=== PATIENT | female | born 1960 | race Caucasian/White ===

== ENCOUNTER → 2017-03-10 | Outpatient (CLI) | payer OTHER ==
[2017-03-10 11:03] LABS: BASO # 0.1 K/mm3 (0.0-0.2); EOS # 0.2 K/mm3 (0.0-0.50); EOS % 2.4 % (0.0-3.0); LARGE UNSTAINED CELL # 0.1 K/mm3 (0.0-0.4); LARGE UNSTAINED CELL % 1.4 % (0.0-4.0); LYMPH # 2.9 K/mm3 (1.5-4.5); LYMPH % 30.9 % (24.0-44.0); MEAN CORPUSCULAR HEMOGLOBIN 30.9 pg (27.0-33.0); MEAN CORPUSCULAR HGB CONC 33.7 g/dl (32.0-36.5); MEAN CORPUSCULAR VOLUME 91.5 fl (80.0-96.0); MONO # 0.4 K/mm3 (0.0-0.8); MONO % 4.7 % (0.0-5.0); NEUTROPHILS # 5.3 K/mm3 (1.8-7.7); NEUTROPHILS % 59.7 % (36.0-66.0); PLATELET COUNT, AUTOMATED 237 k/mm3 (150-450); RED CELL DISTRIBUTION WIDTH 13.7 % (11.5-14.5)
[2017-03-10 11:19] LABS: ALBUMIN 3.5 GM/DL (3.2-5.2); ALBUMIN/GLOBULIN RATIO 1.06 (1.00-1.93); ALKALINE PHOSPHATASE 192 U/L (45-117); ALT/SGPT 47 U/L (12-78); ANION GAP 6 MEQ/L (8-16); AST/SGOT 28 U/L (15-37); BILIRUBIN,TOTAL 0.2 MG/DL (0.2-1.0); BLOOD UREA NITROGEN 14 MG/DL (7-18); CALCIUM LEVEL 9.1 MG/DL (8.5-10.1); CARBON DIOXIDE LEVEL 32 MEQ/L (21-32); CHLORIDE LEVEL 106 MEQ/L (98-107); CHOLESTEROL LEVEL 221 MG/DL (<200); CREATININE FOR GFR 0.99 MG/DL (0.55-1.02); GLOMERULAR FILTRATION RATE > 60.0 (>51); GLUCOSE, FASTING 100 MG/DL (70-105); POTASSIUM SERUM 4.1 MEQ/L (3.5-5.1); SODIUM LEVEL 144 MEQ/L (136-145); TOTAL PROTEIN 6.8 GM/DL (6.4-8.2); TRIGLYCERIDES LEVEL 421 MG/DL (<150)
== END ==
LOC: M LAB 09:45
PROVIDERS: ATTEND Family Medicine Addiction Medicine
DX: E03.9 Hypothyroidism, unspecified (principal)

== ENCOUNTER → 2017-05-27 | Outpatient (REF) | payer OTHER, MEDICAID ==
[2017-05-27 19:48] LABS: ALBUMIN 3.5 GM/DL (3.2-5.2); ALBUMIN/GLOBULIN RATIO 1.09 (1.00-1.93); ALKALINE PHOSPHATASE 137 U/L (45-117); ALT/SGPT 47 U/L (12-78); ANION GAP 10 MEQ/L (8-16); AST/SGOT 29 U/L (15-37); BILIRUBIN,TOTAL 0.3 MG/DL (0.2-1.0); BLOOD UREA NITROGEN 12 MG/DL (7-18); CALCIUM LEVEL 9.2 MG/DL (8.5-10.1); CARBON DIOXIDE LEVEL 23 MEQ/L (21-32); CHLORIDE LEVEL 113 MEQ/L (98-107); CHOLESTEROL LEVEL 196 MG/DL (<200); CREATININE FOR GFR 0.71 MG/DL (0.55-1.02); GLOMERULAR FILTRATION RATE > 60.0 (>51); GLUCOSE, FASTING 114 MG/DL (70-105); POTASSIUM SERUM 4.2 MEQ/L (3.5-5.1); SODIUM LEVEL 146 MEQ/L (136-145); TOTAL PROTEIN 6.7 GM/DL (6.4-8.2); TRIGLYCERIDES LEVEL 224 MG/DL (<150)
== END ==
LOC: M LAB REF 13:35
PROVIDERS: ATTEND Family Medicine Addiction Medicine
DX: E78.5 Hyperlipidemia, unspecified (principal); E03.9 Hypothyroidism, unspecified

== ENCOUNTER 2018-07-04 17:44 | Emergency (ER) | payer OTHER, MEDICAID ==
[2018-07-04] MEDS: dexameTHASONE 20 MG/5 ML VIAL (J1100) IV (20:02)
[2018-07-04] MEDS: IPRATROPIUM 0.5MG/ALBUTEROL 2.5MG INH SOL UD 3ML (DUONEB)(J7620) NEB (20:02)
[2018-07-04 20:24] LABS: BASO # 0.1 10^3/uL (0.0-0.2); BASO % 0.5 % (0.0-1.0); EOS # 0.2 10^3/uL (0.0-0.50); EOS % 1.6 % (0.0-3.0); HEMATOCRIT 42.7 % (36.0-47.0); HEMOGLOBIN 14.5 g/dl (12.0-15.5); IMMATURE GRANULOCYTE % 0.4 % (0-3.0); LYMPH # 1.4 10^3/uL (1.5-4.5); LYMPH % 13.7 % (24.0-44.0); MEAN CORPUSCULAR HEMOGLOBIN 30.7 pg (27.0-33.0); MEAN CORPUSCULAR VOLUME 90.5 fl (80.0-96.0); MONO % 9.5 % (0.0-5.0); NEUTROPHILS # 7.4 10^3/uL (1.8-7.7); NEUTROPHILS % 74.3 % (36.0-66.0); PLATELET COUNT, AUTOMATED 216 10^3/uL (150-450); RED BLOOD COUNT 4.72 10^6/uL (4.00-5.40); RED CELL DISTRIBUTION WIDTH 14.2 % (11.5-14.5)
[2018-07-04 20:40] LABS: INR 0.92; PROTHROMBIN TIME 12.4 SECONDS (12.1-14.4)
[2018-07-04 21:05] LABS: ALBUMIN 3.7 GM/DL (3.2-5.2); ALKALINE PHOSPHATASE 104 U/L (45-117); ALT/SGPT 20 U/L (12-78); ANION GAP 8 MEQ/L (8-16); AST/SGOT 20 U/L (7-37); BILIRUBIN,DIRECT < 0.1 MG/DL (0.0-0.2); BILIRUBIN,TOTAL 0.2 MG/DL (0.2-1.0); BLOOD UREA NITROGEN 8 MG/DL (7-18); CALCIUM LEVEL 9.2 MG/DL (8.5-10.1); CARBON DIOXIDE LEVEL 26 MEQ/L (21-32); CHLORIDE LEVEL 108 MEQ/L (98-107); CPK CREATINE PHOSPHOKINASE 131 U/L (26-192); CREATININE FOR GFR 0.88 MG/DL (0.55-1.30); GLOMERULAR FILTRATION RATE > 60.0 (>51); GLUCOSE, FASTING 123 MG/DL (70-100); MB/CK RELATIVE INDEX 1.45 (< OR =4); POTASSIUM SERUM 3.9 MEQ/L (3.5-5.1); SODIUM LEVEL 142 MEQ/L (136-145); THYROXINE (T4) 3.2 UG/DL (4.5-12.0); TOTAL PROTEIN 7.8 GM/DL (6.4-8.2); TROPONIN I < 0.02 NG/ML (< 0.10)
== END 2018-07-04 22:38 | disposition home or self-care (01) ==
LOC: M ED 17:44
DX: J44.1 Chronic obstructive pulmonary disease with (acute) exacerbation (principal); E03.9 Hypothyroidism, unspecified; F17.210 Nicotine dependence, cigarettes, uncomplicated
CPT/HCPCS: J1100

== ENCOUNTER → 2018-12-01 | Outpatient (REF) | payer OTHER, MEDICAID ==
[~2018-12-01] MED LIST: ATOR40TA75; ATRO0.063; LEVO25TA5; PRED20TA PO
[2018-12-01 15:15] LABS: ALBUMIN 3.6 GM/DL (3.2-5.2); ALT/SGPT 41 U/L (12-78); BILIRUBIN,TOTAL 0.2 MG/DL (0.2-1.0); BLOOD UREA NITROGEN 13 MG/DL (7-18); CALCIUM LEVEL 8.5 MG/DL (8.5-10.1); CARBON DIOXIDE LEVEL 22 MEQ/L (21-32); CHLORIDE LEVEL 113 MEQ/L (98-107); CHOLESTEROL LEVEL 303 MG/DL (<200); CHOLESTEROL RISK RATIO 9.181 (<5); CREATININE FOR GFR 0.84 MG/DL (0.55-1.30); GLOMERULAR FILTRATION RATE > 60.0 (>51); GLUCOSE, FASTING 108 MG/DL (70-100); HDL CHOLESTEROL 33 MG/DL (>40); LDL CHOLESTEROL 195 MG/DL (<100); NON-HDL-C 270 MG/DL; POTASSIUM SERUM 4.9 MEQ/L (3.5-5.1); SODIUM LEVEL 142 MEQ/L (136-145); TOTAL PROTEIN 6.9 GM/DL (6.4-8.2); TRIGLYCERIDES LEVEL 375 MG/DL (<150)
== END ==
LOC: M LAB REF 13:41
PROVIDERS: ATTEND Family Medicine Addiction Medicine
DX: J44.9 Chronic obstructive pulmonary disease, unspecified (principal); E03.9 Hypothyroidism, unspecified

== ENCOUNTER 2019-01-04 00:20 | Emergency (ER) | payer OTHER, MEDICAID ==
[2019-01-04] MEDS ORDERED: NS 1,000 ML IV ONE (02:30)
[2019-01-04 02:39] LABS: BASO # 0.1 10^3/uL (0.0-0.2); BASO % 0.5 % (0.0-1.0); EOS # 0.1 10^3/uL (0.0-0.50); EOS % 0.6 % (0.0-3.0); HEMATOCRIT 41.4 % (36.0-47.0); HEMOGLOBIN 13.7 g/dl (12.0-15.5); MEAN CORPUSCULAR HEMOGLOBIN 30.4 pg (27.0-33.0); MEAN CORPUSCULAR HGB CONC 33.1 g/dl (32.0-36.5); MEAN CORPUSCULAR VOLUME 91.8 fl (80.0-96.0); MONO # 1.1 10^3/uL (0.0-0.8); NEUTROPHILS # 9.9 10^3/uL (1.8-7.7); NEUTROPHILS % 75.7 % (36.0-66.0); PLATELET COUNT, AUTOMATED 237 10^3/uL (150-450); RED BLOOD COUNT 4.51 10^6/uL (4.00-5.40); WHITE BLOOD COUNT 13.1 10^3/uL (4.0-10.0)
[2019-01-04 03:00] VITALS: BP 147/79
[2019-01-04 03:05] LABS: BLOOD UREA NITROGEN 11 MG/DL (7-18); CALCIUM LEVEL 8.7 MG/DL (8.5-10.1); CARBON DIOXIDE LEVEL 28 MEQ/L (21-32); CHLORIDE LEVEL 109 MEQ/L (98-107); CPK CREATINE PHOSPHOKINASE 117 U/L (26-192); GLOMERULAR FILTRATION RATE > 60.0 (>51); GLUCOSE, FASTING 61 MG/DL (70-100); MB/CK RELATIVE INDEX 1.62 (< OR =4); POTASSIUM SERUM 4.1 MEQ/L (3.5-5.1); SODIUM LEVEL 143 MEQ/L (136-145); TROPONIN I < 0.02 NG/ML (< 0.10)
[2019-01-04] MEDS ORDERED: ISOVUE-370 76% 100ML VIAL (Q9967) As Ordered ONE (03:31)
--- NOTE | 2019-01-04 05:03 | REPVR ---
EXAM: CT Angiography Chest With Contrast EXAM DATE/TIME: 01/04/2019 3:24 AM CLINICAL HISTORY: 58 years old, female; Pain; Other: Arm; Additional info: Arm pain TECHNIQUE: Imaging protocol: Axial computed tomographic angiography images of the chest with intravenous contrast using CT angiography protocol. Coronal and sagittal reformatted images were created and reviewed. 3D rendering: MIP reconstructed images were created and reviewed. Radiation optimization: All CT scans at this facility use at least one of these dose optimization techniques: automated exposure control; mA and/or kV adjustment per patient size (includes targeted exams where dose is matched to clinical indication); or iterative reconstruction. Contrast material: iso Contrast volume: 75 ml Contrast route: ac COMPARISON: CR PORTABLE CHEST X-RAY 07/04/2018 6:20 PM FINDINGS: Pulmonary arteries: The main pulmonary artery measures 20 mm. No pulmonary embolism is identified. Aorta: The ascending thoracic aorta measures 24 mm. No gross or obvious aortic dissection is identified distal to the mid arch. Artifact and image degradation precludes detailed evaluation of the ascending thoracic aorta. Lungs: Minimal diffuse bullous change with scattered interstitial prominence and minimal fibro-atelectatic change. Noncalcified posteromedial left upper lobe pulmonary nodule measuring 10 x 9 x 10 mm. Pleural space: Normal. No pneumothorax. No pleural effusion. Heart: Normal. No cardiomegaly. No pericardial effusion. Lymph nodes: Unremarkable. No enlarged lymph nodes. Bones/joints: Unremarkable. No acute fracture. Soft tissues: Unremarkable. IMPRESSION: 1. Noncalcified posteromedial left upper lobe nodule measuring 10 x 9 x 10 mm. Cyst For both low risk and high risk patients, consider CT at 3 months, PET/CT or biopsy. (Rigo et al., Fleischner Society, 2017). 2. Minimal diffuse bullous change with scattered interstitial prominence and minimal fibro-atelectatic change. 3. Otherwise negative CTA chest. No pulmonary embolism is identified. Electronically signed by: Jorge Ontiveros On 01/04/2019 05:02:37 AM
--- NOTE | 2019-01-04 14:31 | ED PDOC ---
Post-Departure Follow-Up brittany willard faxed formal re[prt of cta chest for fu Loida Palmer MD Jan 04, 2019 14:31
--- NOTE | 2019-01-05 21:24 | ECGEPIP ---
Stationary ECG Study [facility] - ED Test Date: 2019-01-04 Pat Name: ALIN JUARES Department: Room: - Gender: F Embalmer/Funeral Director: gt : 1960 Requested By: CHELSI BERNABE Order Number: [id number] Reading MD: Ava Kahn Measurements Intervals [place] Rate: 94 P: 72 [place]: 186 QRS: 58 QRSD: 101 T: 68 QT: 359 QTc: 450 Interpretive Statements SINUS RHYTHM POSSIBLE RIGHT VENTRICULAR CONDUCTION DELAY NSTTW ABNORMALITY DECREASED RATE 07/04/18 Electronically Signed On 01-05-2019 21:24:42 EDT by Ava Kahn
== END 2019-01-04 05:31 | disposition home or self-care (01) ==
LOC: M ED 00:20
DX: R29.0 Tetany (principal); R91.1 Solitary pulmonary nodule; E16.2 Hypoglycemia, unspecified; G43.909 Migraine, unspecified, not intractable, without status migrainosus; E03.9 Hypothyroidism, unspecified; J44.9 Chronic obstructive pulmonary disease, unspecified; Z72.0 Tobacco use; Z79.899 Other long term (current) drug therapy
CPT/HCPCS: 71275; 80048; 82550; 82553; 85025; 93005; 93041; 96360; 96361; 99284; Q9967

== ENCOUNTER → 2019-03-27 | Outpatient (REF) | payer OTHER, MEDICAID ==
[2019-03-27 17:44] LABS: ALBUMIN 3.6 GM/DL (3.2-5.2); ALT/SGPT 41 U/L (12-78); BILIRUBIN,TOTAL < 0.1 MG/DL (0.2-1.0); BLOOD UREA NITROGEN 14 MG/DL (7-18); CALCIUM LEVEL 8.6 MG/DL (8.5-10.1); CARBON DIOXIDE LEVEL 24 MEQ/L (21-32); CHLORIDE LEVEL 112 MEQ/L (98-107); CHOLESTEROL LEVEL 236 MG/DL (<200); CHOLESTEROL RISK RATIO 6.378 (<5); CREATININE FOR GFR 0.87 MG/DL (0.55-1.30); GLOMERULAR FILTRATION RATE > 60.0 (>51); GLUCOSE, FASTING 114 MG/DL (70-100); HDL CHOLESTEROL 37 MG/DL (>40); LDL CHOLESTEROL 135 MG/DL (<100); NON-HDL-C 199 MG/DL; POTASSIUM SERUM 4.4 MEQ/L (3.5-5.1); SODIUM LEVEL 143 MEQ/L (136-145); TOTAL PROTEIN 6.6 GM/DL (6.4-8.2); TRIGLYCERIDES LEVEL 319 MG/DL (<150)
== END ==
LOC: M LAB REF 16:37
PROVIDERS: ATTEND Family Medicine Addiction Medicine
DX: E03.9 Hypothyroidism, unspecified (principal)

== ENCOUNTER 2021-01-30 21:52 | Inpatient (IN) | payer MEDICAID, OTHER ==
[~2021-01-30] VITALS: Ht 160 cm; Wt 83.5 kg
[2021-01-30] MEDS ORDERED: EUTH200T PO (22:14)
[2021-01-30] MEDS ORDERED: ALBU83IN PO (22:14)
[2021-01-30] MEDS ORDERED: COMBAER6 PO (22:14)
[2021-01-30] MEDS ORDERED: NS 1,000 ML IV ONE ×4 (22:35→23:45)
[2021-01-30 22:48] LABS: HEMATOCRIT 38.8 % (36.0-47.0); HEMOGLOBIN 12.6 g/dl (12.0-15.5); MEAN CORPUSCULAR HGB CONC 32.5 g/dl (32.0-36.5); MEAN CORPUSCULAR VOLUME 95.6 fl (80.0-96.0); PLATELET COUNT, AUTOMATED 202 10^3/uL (150-450); RED BLOOD COUNT 4.06 10^6/uL (4.00-5.40)
[2021-01-30 23:10] LABS: CALCIUM LEVEL 8.4 MG/DL (8.8-10.2); CREATININE FOR GFR 1.99 MG/DL (0.55-1.30); FREE T4 0.86 NG/DL (0.76-1.46); GLOMERULAR FILTRATION RATE 27.1 (>45); POTASSIUM SERUM 4.1 MEQ/L (3.5-5.1); THYROID STIMULATING HORMONE 9.2 uIU/ML (0.358-3.740)
--- NOTE | 2021-01-30 23:12 | REPVR ---
PROCEDURE INFORMATION: Exam: XR Chest Exam date and time: 01/30/2021 10:29 PM Age: 60 years old Clinical indication: Other: Chest pain TECHNIQUE: Imaging protocol: XR of the chest. Views: 1 view. COMPARISON: CR PORTABLE CHEST X-RAY 07/04/2018 6:20 PM FINDINGS: Lungs: Mild left basilar atelectasis. There is dense airspace disease at the right lung base. Pleural spaces: Unremarkable. No pleural effusion. No pneumothorax. Heart/Mediastinum: Stable cardiac silhouette without cardiomegaly. Bones/joints: Unremarkable. IMPRESSION: Dense airspace disease at the right lung base concerning for pneumonia. Electronically signed by: Haris Ball On 01/30/2021 23:12:13 PM
--- NOTE | 2021-01-30 23:15 | REPVR ---
PROCEDURE INFORMATION: Exam: CT Chest Without Contrast; Diagnostic Exam date and time: 01/30/2021 11:01 PM Age: 60 years old Clinical indication: Other: Hypotension; Additional info: Hypotension, acute renal failure TECHNIQUE: Imaging protocol: Diagnostic computed tomography of the chest without contrast. Radiation optimization: All CT scans at this facility use at least one of these dose optimization techniques: automated exposure control; mA and/or kV adjustment per patient size (includes targeted exams where dose is matched to clinical indication); or iterative reconstruction. COMPARISON: CT ANGIO CHEST 01/04/2019 3:31 AM FINDINGS: Lungs: 9 mm left upper lobe pulmonary nodule is stable. Emphysema. There is airspace disease involving right upper lobe, right middle lobe and right lower lobe. Minimal airspace disease at the left lower lobe. Pleural spaces: Unremarkable. No pneumothorax. No pleural effusion. Heart: Coronary artery calcification. Aorta: Aortic calcification without aneurysm. Lymph nodes: Unremarkable. No enlarged lymph nodes. Liver: Hepatic steatosis. Bones/joints: Unremarkable. No acute fracture. Soft tissues: Unremarkable. IMPRESSION: 1. Airspace disease involving the right upper lobe, right middle lobe, right lower lobe and minimally the left lower lobe. Probable pneumonia. 2. Stable 9 mm left upper lobe pulmonary nodule from examination dated 01/04/2019. Electronically signed by: Haris Ball On 01/30/2021 23:15:36 PM
[2021-01-30 23:24] LABS: LYMPHOCYTES 6 % (16-44); MONOCYTES 3 % (0-5); NEUTROPHILS 88 % (28-66); PLATELET CLUMPS MODERATE AMT; PLATELET ESTIMATE NORMAL (NORMAL)
[2021-01-30 23:25] LABS: TOXIC VACUOLATION 1+
[2021-01-30] MEDS ORDERED: cefTRIAXone SOD 2 GM in D5W MINI-BAG PLUS 50 ML IV ONE (23:30)
--- NOTE | 2021-01-30 23:30 | REPVR ---
PROCEDURE INFORMATION: Exam: CT Abdomen And Pelvis Without Contrast Exam date and time: 01/30/2021 11:01 PM Age: 60 years old Clinical indication: Abdominal pain; Generalized; Additional info: Hypotension, acute renal failure TECHNIQUE: Imaging protocol: Computed tomography of the abdomen and pelvis without contrast. Radiation optimization: All CT scans at this facility use at least one of these dose optimization techniques: automated exposure control; mA and/or kV adjustment per patient size (includes targeted exams where dose is matched to clinical indication); or iterative reconstruction. COMPARISON: No relevant prior studies available. FINDINGS: Lungs: Lung bases are better evaluated on dedicated examination. Liver: Hepatic steatosis. Hepatomegaly measures 21 cm. Gallbladder and bile ducts: Normal. No calcified stones. No ductal dilation. Pancreas: Normal. No ductal dilation. Spleen: Normal. No splenomegaly. Adrenal glands: Normal. No mass. Kidneys and ureters: No hydronephrosis. Stomach and bowel: Colonic intramural fat deposition likely secondary to previous inflammation. No acute pericolonic inflammatory change. Appendix: Normal appendix. Intraperitoneal space: Unremarkable. No free air. No significant fluid collection. Vasculature: Vascular calcification. Lymph nodes: Unremarkable. No enlarged lymph nodes. Urinary bladder: Under distended urinary bladder. Reproductive: Unremarkable as visualized. Bones/joints: There are mild for age degenerative changes involving the spine. Soft tissues: Small fat containing umbilical hernia. IMPRESSION: 1. No acute abnormality. 2. Non emergent findings as above. Electronically signed by: Haris Ball On 01/30/2021 23:29:42 PM
[2021-01-30 23:35] LABS: ALBUMIN 3.4 GM/DL (3.2-5.2); BILIRUBIN,DIRECT 0.3 MG/DL (0.0-0.2); BILIRUBIN,TOTAL 0.9 MG/DL (0.2-1.0); TOTAL PROTEIN 6.3 GM/DL (6.4-8.2)
[2021-01-30] MEDS ORDERED: dexameTHASONE 20MG/5ML VIAL (J1100 PER 1MG) IV ONE (23:45)
[2021-01-31] VITALS (50 sets, daily range): BP systolic 87–145; BP diastolic 50–85
[2021-01-31] MEDS ORDERED: NS 2,500 ML in IV 1 EA IV ONE (00:05)
[2021-01-31 00:29] LABS: C REACTIVE PROTEIN QUANTITATIV 24.5 MG/DL (0.00-0.30)
[2021-01-31] MEDS: IPRATROPIUM 0.5MG/ALBUTEROL 2.5MG INH SOL UD 3ML (DUONEB) NEB SCH ×6 (00:57→19:45)
[2021-01-31] MEDS ORDERED: AZITHROMYCIN INJ 500 MG, VIAL MATE ADAPTER 1 EACH in NS 250 ML IV ONE (01:30)
[2021-01-31] MEDS ORDERED: fentaNYL 100 MCG/2 ML INJECTION (J3010) IV ONE (01:30)
[2021-01-31] MEDS ORDERED: methylPREDNISolone 125MG 2ML VIAL IV ONE (01:35)
[2021-01-31] MEDS ORDERED: ALBU83IN INH (01:37)
[2021-01-31] MEDS ORDERED: ZINC1TAB2 PO (01:37)
[2021-01-31] MEDS ORDERED: D31000TA2 PO (01:37)
[2021-01-31] MEDS ORDERED: EUTH200T PO (01:37)
[2021-01-31] MEDS ORDERED: ALEV220T22 PO (01:37)
[2021-01-31 01:56] LABS: HEMOGLOBIN A1c 5.8 %
[2021-01-31] MEDS ORDERED: ALBUTEROL SULFATE 2.5 MG/0.5 ML INH NEB SOLN INH PRN (02:05)
[2021-01-31] MEDS ORDERED: ALBUTEROL SULFATE 2.5 MG/0.5 ML INH NEB SOLN NEB PRN (02:45)
--- NOTE | 2021-01-31 02:56 | HPEPDOC ---
[facility] Medical History & Physical Date of Admission January 31, 2021 Date of Service: January 31, 2021 Other Provider Richard Giraldo MD Attending Physician: BRAN ABEBE MD History and Physical CHIEF COMPLAINT: difficulty breathing HISTORY OF PRESENT ILLNESS: Ally Rey is a 60 year old female who presented with 1 day history of shortness of breath and right sided chest pain. She states she woke up in the morning on 01/30 with pain in her left shoulder and along the right side of her chest extending down to near her abdomen. She states the pain was sharp and achy. She used a heating pad which helped the pain in the left shoulder. She felt this was a muscle strain from lifting things the day prior. She decided to rest in bed all day but noticed some shortness of breath, particularly difficulty taking a deep breath. She states this exacerbates her pain on the right side. She denies fevers or chills at home but reports sweats all day today. No change in weight. She states she has had a dry cough today as well which is new. No sputum production or hemoptysis. She feels she is wheezing when she breaths today as well. No sick contacts. REVIEW OF SYSTEMS: CONSTITUTIONAL: Per HPI HEENT: Denies change in vision, change in hearing. CARDIOVASCULAR: Denies chest pain, palpitations, shortness of breath, lightheadedness. RESPIRATORY: Per HPI GASTROINTESTINAL: Denies nausea, vomiting, abdominal pain, diarrhea, constipation, blood in stool. GENITOURINARY: Denies dysuria, urinary frequency, urinary urgency. SKIN: Denies rash, lesions. MUSCULOSKELETAL: Denies new joint pain or muscle aches. NEUROLOGICAL: Denies headache, dizziness, weakness. PSYCHIATRIC: Denies change in mood. PAST MEDICAL /SURGICAL HISTORY: COPD, Hypothyroidism, Diverticulosis, Chronic low back pain, section, Ovarian cyst removal SOCIAL HISTORY: Smokes 1ppd for approx 40 years, 40 pack year hx. / No alcohol use. No illicit substance use / Live at home alone FAMILY HISTORY: One sister with thyroid disease. One brother with BRAD. / Father with diabetes mellitus / Mother of colon cancer ALLERGIES: Please see below. HOME MEDICATIONS: Please see below. PHYSICAL EXAMINATION: VITAL SIGNS: See below GENERAL: Alert, comfortable, in mild respiratory distress HEENT: Normocephalic, atraumatic, sclera anicteric, moist mucous membranes NECK: Supple, trachea midline, no lymphadenopathy CARDIOVASCULAR: Tachycardic with regular rhythm, normal S1 and S2. No murmurs, rubs, or gallops RESPIRATORY: Rhonchi noted in the lower to mid right lung love. Expiratory wheezing throughout bilateral lung love. ABDOMEN: Soft, nondistended, bowel sounds present. Mildly tender to deep palpation throughout. EXTREMITIES: No cyanosis or edema. Pulses 2+/4 in bilateral upper and lower extremities SKIN: [place], warm, dry NEUROLOGIC: Alert and oriented x3 to person, place and time. No focal deficits appreciated PSYCHIATRIC: Mood and affect appropriate LABORATORY DATA: See below. IMAGING: (per radiologist impressions) - CXR Dense airspace disease at the right lung base concerning for pneumonia. - CT abdomen/pelvis 1. No acute abnormality. 2. Non emergent findings (see full report) - CT Chest 1. Airspace disease involving the right upper lobe, right middle lobe, right lower lobe and minimally the left lower lobe. Probable pneumonia. 2. Stable 9 mm left upper lobe pulmonary nodule from examination dated 01/04/2019. MICROBIOLOGY: Please see below. ASSESSMENT: 60 year old female with PMHx of COPD and hypothyroidism who presented with 1 day history of shortness of breath and right sided chest pain, found to have sepsis secondary to pneumonia, admitted for IV antibiotics and further management PLAN: # Community acquired pneumonia - IV antibiotics with ceftriaxone, azithromycin, and vancomycin. MRSA screen pending - Check urine for mycoplasma, chlamydia, strep pneumo, legionella Ags - sputum culture ordered. blood cultures x2 pending. procalcitonin pending - incentive spirometer and acapella - further management for sepsis as below # Sepsis 2/2 CAP - SIRS criteria 3/4 with elevated WBC, tachycardia, tachypnea - qSOFA score 2, high risk - Lactic acid elevated at 2.7, repeat pending - sputum culture ordered. blood cultures x2 pending. procalcitonin pending - s/p 30ml/kg IV fluid bolus - monitor on telemetry. q6h FSBS # Hypotension - 2/2 dehydration vs sepsis - fluid responsive, continue with IV fluids # COPD with acute exacerbation - s/p IV steroid dose, continue oral prednisone 40 mg daily. - scheduled Duonebs with prn albuterol nebs - hold home scheduled Combivent while on scheduled Duonebs - titrate O2 88-92%. patient is not oxygen or steroid dependent at home. # KASSY - may be 2/2 dehydration, now s/p IV fluid hydration - UA shows 1+ protein, 1+ blood, 9 WBC - check urine electrolytes and renal US - avoid nephrotoxic agents - trend BMP daily - belcher cath placed in ED # Hypothyroidism - elevated TSH, likely euthyroid sick syndrome - f/u for repeat TSH as an outpatient with PCP - continue home levothyroxine # Low back pain - hold home naproxen and other NSAIDs due to KASSY - Tylenol prn DVT Prophylaxis: sc heparin Disposition: will need at least 2 midnight's stay Vital Signs Vital Signs Date Time Temp Pulse Resp B/P (MAP) Pulse Ox O2 Delivery O2 Flow Rate FiO2 01/31/21 02:00 110 24 95/55 (68) 87 Venturi Mask 50 01/31/21 01:37 3.0 01/30/21 21:53 97.9 Laboratory Data Labs 24H Laboratory Tests 2 01/30/21 22:05: Neutrophils (%) (Auto) , Nucleated Red Blood Cells % (auto) 0.0, Neutrophils 88H, Band Neutrophils 3, Lymphocytes (Manual) 6L, Monocytes (Manual) 3, Toxic Vacuolation 1+, Platelet Estimate NORMAL, Clumped Platelets MODERATE AMT, Anion Gap 10, Glomerular Filtration Rate 27.1L, Calcium Level 8.4L, Total Bilirubin 0.9, Direct Bilirubin 0.3H, Aspartate Amino Transf (AST/SGOT) 29, Alanine Aminotransferase (ALT/SGPT) 38, Alkaline Phosphatase 111, C-Reactive Protein, Quantitative 24.50H, HV-Raj-O-Type Natriuretic Peptide 2470H, Total Protein 6.3L, Albumin 3.4, Albumin/Globulin Ratio 1.2, Amylase Level 24L, Lipase 25L, Thyroid Stimulating Hormone (TSH) 9.200H, Free Thyroxine 0.86 01/30/21 22:18: Estimated Mean Plasma Glucose 120H, Hemoglobin A1c 5.8 01/30/21 22:31: POC Troponin I (Misc) 0.00 01/30/21 22:43: POC Glucose (Misc Panel) 100, POC Sodium (Misc Panel) 136, POC Potassium (Misc Panel) 4.0, POC Chloride (Misc Panel) 103, POC Total CO2 (Misc Panel) 24.0, POC Blood Urea Nitrogen (Misc Panel 22, POC Ionized Calcium (Misc Panel) 4.4L, POC Creatinine (Misc Panel) 2.1H, POC Hematocrit (Misc Panel) 40.0 01/30/21 23:01: POC pH (Misc Panel) 7.394, POC Base Excess (Misc Panel) -8.0L, POC Saturated Percent O2 (Misc) 96, POC pO2 (Misc Panel) 83.0, POC pCO2 (Misc Panel) 27.6L, POC HCO3 (Misc Panel) 16.9L, POC Total CO2 (Misc Panel) 18.0L 01/30/21 23:12: Urine Color DANIEL, Urine Appearance CLOUDYH, Urine pH 5.0, Urine Specific [place] 1.020, Urine Protein 1+H, Urine Glucose (UA) NEGATIVE, Urine Ketones NEGATIVE, Urine Blood 1+H, Urine Nitrite NEGATIVE, Urine Bilirubin NEGATIVE, Urine Urobilinogen 2.0H, Urine Leukocyte Esterase NEGATIVE, Urine WBC (Auto) 9H, Urine RBC (Auto) 2, Urine Hyaline Casts (Auto) 3, Urine Bacteria (Auto) NEGATIVE, Urine Squamous Epithelial Cells 2, Urine Transitional Epithelial Cells 2, Urine Mucus (Auto) SMALL, Urine Sperm (Auto) , Lactic Acid Level 2.7*H 01/31/21 01:50: CBC/BMP Laboratory Tests 01/30/21 22:05 Microbiology Microbiology 01/30/21 Respiratory Virus Panel (PCR) (MEME) - Final, Complete 01/30/21 Blood Culture, Received Pending 01/30/21 Blood Culture, Received Pending Home Medications Scheduled Cholecalciferol (Vitamin D3) (Vitamin D3) 1,000 Unit Tablet, 1,000 UNITS PO DAILY Ipratropium/Albuterol Sulfate (Combivent Respimat 20-100 Mcg) 4 Gm Mist.inhal, 1 PUFF PO QID Levofloxacin (Levofloxacin) 750 Mg Tablet, 750 MG PO DAILY Levothyroxine Sodium (Euthyrox) 200 Mcg Tablet, 200 MCG PO DAILY Zinc (Zinc) 50 Mg Tablet, 50 MG PO DAILY Scheduled PRN Albuterol Sulf (Albuterol Sulfate) 2.5 Mg/3 Ml Vial.neb, 2.5 MG INH Q4H PRN for SHORTNESS OF BREATH Naproxen Sodium (Aleve) 220 Mg Tablet, 440 MG PO BID PRN for PAIN Allergies Coded Allergies: No Known Allergies (Unverified , 07/04/18) GME ATTESTATION GME ATTESTATION My faculty preceptor for this patient encounter was physically present during the encounter and was fully available. All aspects of the patient interview, examination, medical decision making process, and medical care plan development were reviewed and approved by the faculty preceptor. The faculty preceptor is aware and concurs with the plan as stated in the body of this note and will attest to such by his/her cosignature. ATTENDING NOTE Time of service 238 AM is a 60 yr old smoker w COPD, Hepatic steatosis, Diverticulosis, Hypothyroidism & Obesity who is admitted for acute hypoxemic respiratory failure, septic shock 2/2 multilobar PNA, KASSY and acute COPD. Rest per 's H&P LATE ENTRY 330 AM I received a call from the patient's RN Mark Anthony because he was concerned that the patient looked pale, her MAP was below 70 and she was still tachypneic despite being on Venti mask At the time of my second visit the the patient reported feeling a better. Plan: switch to Vapotherm, check VBG, repeat Hg, repeat lactic acid and c/w NS @ 120ml/H LATE ENTRY 441AM I received a call from the patient's RN bc the patient's MAP is 68, she hasn't produced much urine, and her RR is in the 30s despite Vapotherm. # Acute Hypoxemix Respiratory Failure 2/2 Multifocal PNA The patient is working fairly hard to breath and I anticipate that she may get tired Plan: will consult to determine if the patient needs to be intubated # Septic Shock Plan: will upgrade to ICU and consult to decide if the patient needs a central line and pressors / f/u Echo, and AM cortisol # Non AG Metabolic Acidosis Plan: will ask if the patient needs to be switched to a Bicarb drip / repeat lactic acid is pending / f/u , [facility], serum osmo, serum ETOH # Macrocytic Anemia Plan: f/u Iron studies, B12, folate and stool occult #Hypomagnesemia Plan: mag sulfate # Oliguria ATN ? Plan: continue to monitor UOP / day time team may consider Nephro consult #Obesity with BMI of 32.5 complicates care FCO SIERRA D.O. January 31, 2021 02:55 BRAN ABEBE MD January 31, 2021 04:45
[2021-01-31] MEDS ORDERED: VANCOMYCIN HCL 750 MG, VIAL MATE ADAPTER 1 EACH in NS 250 ML IV ONE ×2 (03:00→04:00)
--- NOTE | 2021-01-31 03:19 | REPVR ---
PROCEDURE INFORMATION: Exam: US Retroperitoneal Limited, Kidneys Exam date and time: 01/31/2021 2:53 AM Age: 60 years old Clinical indication: Other: Jayme TECHNIQUE: Imaging protocol: Real-time ultrasound of the retroperitoneum with image documentation. Examination was focused on the kidneys. COMPARISON: CT ABD PELVIS W/O CONTRAST 01/30/2021 11:00 PM FINDINGS: Right kidney: Right kidney measures 11.3 x 4.9 x 5.1 cm. Right kidney appears within normal limits. Left kidney: Left kidney measures 11.7 x 4.1 x 5.0 cm. Left kidney demonstrates duplex collecting system. No hydronephrosis. Bladder: Urinary bladder is decompressed by a Arias catheter and poorly evaluated. IMPRESSION: No hydronephrosis. Electronically signed by: Haris Ball On 01/31/2021 03:18:19 AM
[2021-01-31] MEDS ORDERED: NS 1,000 ML IV SCH (03:30)
[2021-01-31 04:00] LABS: VENOUS BASE EXCESS -12.8 (-2.0-2.0); VENOUS HCO3 14.2 MEQ/L (23.0-27.0); VENOUS O2 SATURATION 98.3 % (60.0-80.0); VENOUS PARTIAL PRESSURE CO2 36.7 mmHg (38.0-50.0); VENOUS PH 7.207 UNITS (7.330-7.430); VENOUS STANDARD HCO3 14.5 MEQ/L; VENOUS TOTAL CO2 15.4 MEQ/L (24.0-28.0)
[2021-01-31] MEDS ORDERED: IPRATROPIUM 0.5MG/ALBUTEROL 2.5MG INH SOL UD 3ML (DUONEB) INH SCH (04:00)
[2021-01-31 04:04] LABS: HEMATOCRIT 35.1 % (36.0-47.0); MEAN CORPUSCULAR HGB CONC 31.3 g/dl (32.0-36.5); MEAN CORPUSCULAR VOLUME 98.9 fl (80.0-96.0); PLATELET COUNT, AUTOMATED 141 10^3/uL (150-450); RED BLOOD COUNT 3.55 10^6/uL (4.00-5.40); WHITE BLOOD COUNT 8.3 10^3/uL (4.0-10.0)
[2021-01-31 04:33] LABS: CALCIUM LEVEL 6.8 MG/DL (8.8-10.2); CREATININE FOR GFR 1.39 MG/DL (0.55-1.30); MAGNESIUM LEVEL 1.3 MG/DL (1.8-2.4); POTASSIUM SERUM 4.2 MEQ/L (3.5-5.1)
[2021-01-31] MEDS ORDERED: MAG SULF 1GM/100ML (MAG RUN) 1 GM in IV 1 EA IV ONE ×2 (05:00→09:00)
--- NOTE | 2021-01-31 05:03 | ECGEPIP ---
[facility] - ED Test Date: 2021-01-30 Pat Name: ALIN JUARES Department: Room: - Gender: Female Front Desk: RIRI VELAB: 1960 Requested By: Dipesh Dumont Order Number: [id number] Reading MD: Dipesh Jones Measurements Intervals [place] Rate: 109 P: 65 SC: 166 QRS: 49 QRSD: 96 T: 73 QT: 356 QTc: 479 Interpretive Statements Sinus tachycardia INCOMPLETE RIGHT BUNDLE BRANCH BLOCK POOR R WAVE PROGRESSION SIMILAR TO 01/04/19 Electronically Signed on 01-31-2021 5:02:56 EDT by Dipesh Jones
[2021-01-31] MEDS ORDERED: NOREPINEPHRINE BITARTRATE 8 MG in D5W 500 ML IV SCH (05:05)
[2021-01-31 05:20] LABS: ABG pH (ARTERIAL) 7.328 UNITS (7.350-7.450)
[2021-01-31 05:21] LABS: ABG BASE EXCESS -10.7 (-2.0-2.0); ABG HCO3 13.7 MEQ/L (22.0-26.0); ABG O2 SATURATION 94.7 % (95.0-99.0); ABG PARTIAL PRESSURE CO2 26.8 mmHg (35.0-45.0); ABG PARTIAL PRESSURE O2 77.6 mmHg (75.0-100.0); ABG STANDARD HCO3 15.9 MEQ/L (22.0-26.0); ABG TOTAL CO2 14.6 MEQ/L (23.0-31.0)
[2021-01-31 05:57] LABS: PERCENT SATURATION 6.1 % (13.2-45.0)
[2021-01-31 06:02] LABS: CREATININE,RANDOM URINE 59.7 MG/DL
[2021-01-31] MEDS: HEPARIN SOD (PORCINE) 5000UNITS/ML 1ML VIAL/SYRINGE SC SCH ×3 (06:23→22:08)
--- NOTE | 2021-01-31 07:29 | REPVR ---
PROCEDURE INFORMATION: Exam: XR Chest Exam date and time: 01/31/2021 6:58 AM Age: 60 years old Clinical indication: Other: SOB TECHNIQUE: Imaging protocol: XR of the chest. Views: 1 view. COMPARISON: CT Chest without contrast 01/30/2021 11:00 PM FINDINGS: Lungs: Emphysematous change and interstitial prominence. Prominent right-sided airspace disease, with mild left basilar airspace disease. Pleural spaces: Right pleural effusion. Heart/Mediastinum: No cardiomegaly. Bones/joints: Osteopenia and degenerative change. IMPRESSION: 1. Prominent right-sided airspace disease, with mild left basilar airspace disease. 2. Right pleural effusion. Electronically signed by: Italo Cain On 01/31/2021 07:28:51 AM
[2021-01-31] MEDS: VITAMIN D 1,000 INTERNATIONAL UNITS TABLET PO SCH (08:31)
[2021-01-31] MEDS: NICOTINE 21MG/24HR 1 EA TRANSDERMAL TD SCH (08:31)
[2021-01-31] MEDS: predniSONE 20 MG TAB PO SCH (08:32)
[2021-01-31] MEDS: LEVOTHYROXINE 100MCG TABLET (0.1MG) PO SCH (08:34)
[2021-01-31] MEDS ORDERED: PANTOPRAZOLE 40MG TAB (PROTONIX) PO SCH (09:00)
[2021-01-31] MEDS ORDERED: methylPREDNISolone 125MG 2ML VIAL IV SCH (09:00)
[2021-01-31 09:22] LABS: CORTISOL AM 55.3 UG/DL (4.3-22.4); FOLATE 3.8 NG/ML
[2021-01-31 09:34] LABS: OSMOLALITY SERUM 296 MOSM/KG (280-301)
[2021-01-31 09:35] LABS: BLOOD UREA NITROGEN 17 MG/DL (7-18); CALCIUM LEVEL 7.1 MG/DL (8.8-10.2); CARBON DIOXIDE LEVEL 16 MEQ/L (21-32); CHLORIDE LEVEL 118 MEQ/L (98-107); CREATININE FOR GFR 1.24 MG/DL (0.55-1.30); ETHYL ALCOHOL (ETHANOL) < 0.003 % (0.000-0.010); GLOMERULAR FILTRATION RATE 46.8 (>45); GLUCOSE, FASTING 139 MG/DL (70-100); POTASSIUM SERUM 4.2 MEQ/L (3.5-5.1); SODIUM LEVEL 144 MEQ/L (136-145)
[2021-01-31] MEDS: fentaNYL 100 MCG/2 ML INJECTION (J3010) IV PRN ×3 (12:23→22:08)
[2021-01-31 13:23] LABS: POTASSIUM RANDOM URINE 29.7 MEQ/L
--- NOTE | 2021-01-31 13:40 | CCN ---
CRITICAL CARE NOTE DATE: 01/31/2021 CHIEF COMPLAINT: Hypotension and dyspnea. HISTORY OF PRESENT ILLNESS: Ms. Rey is a 60-year-old female with a past medical history of chronic obstructive pulmonary disease (COPD), ongoing nicotine dependence, hypothyroidism and chronic low back pain who had presented with complaints of shortness of breath and right-sided chest pain. Patient reported waking up the morning of 01/30/2021 with pain in the right side of her chest extending down into the right upper quadrant. She described the pain as sharp and achy and was also noticing some increasing shortness of breath as well as lightheadedness, which concerned her. She also had some pain in her left shoulder as well, although she was able to use a heating pad, which helped with the pain in her left shoulder and felt this was more of a musculoskeletal strain from when she was lifting things the day previous. Patient was concerned, however, with the persistent pain that she noticed on the right side, particularly worse with coughing and with deep inspiration. With the lightheadedness as well, the then called emergency medical services (EMS). The patient does have a history of chronic cough related to her ongoing nicotine dependence and she states she was unclear if she had noticed worsening cough or mucus production. She does feel that she has had some increased wheezing as well. She also denied noticing any fevers or chills. She did take her temperature at home and she does take her temperature daily. She has had some sweats during the day. She denied any nausea or vomiting. She does have some ankle edema at times, particularly when she is on her feet at the end of the day, but does not feel her lower extremity edema has worsened. She has not had any recent sick contacts that she is aware of. There was a person at work who was diagnosed with COVID, but she states she had started self-quarantine immediately afterwards. PAST MEDICAL/SURGICAL HISTORY: 1. Chronic obstructive pulmonary disease (COPD). 2. Hypothyroidism. 3. Diverticulosis. 4. Chronic low back pain. 5. Ongoing nicotine dependence. 6. section. 7. Ovarian cyst removal. SOCIAL HISTORY: Patient is a current active smoker, one pack a day, for approximately 40 years. Denies any alcohol use or illicit drug use. Patient works at [email or web address] in the [employer] unit. FAMILY HISTORY: Mother with history of colon cancer. Father with history of diabetes. Siblings with history of thyroid disease, another with obstructive sleep apnea. HOME MEDICATIONS: - vitamin D - Combivent - levothyroxine - zinc - albuterol as needed nebulized - naproxen as needed ALLERGIES: No known drug allergies. PHYSICAL EXAMINATION: VITAL SIGNS: Temperature 99.2, pulse 98, respirations 24, blood pressure 91/52, oxygen saturation 92% on Vapotherm at 60% FiO2 and 25 liters/min. INPUT AND OUTPUT: In 6.5 liters, out 25 mL. GENERAL: Patient is an overweight female, is lying in the hospital bed and appears mildly tachypneic. She can speak in short sentences but does have mild respiratory distress. She is awake, alert and oriented times three. HEENT: Normocephalic, atraumatic. Moist mucous membranes noted. Neck is supple. Trachea is midline. I am unable to clearly evaluate jugular venous distention (JVD). CARDIAC: Tachycardic. Regular rate and rhythm. Normal S1, S2. Unable to clearly appreciate any murmurs. PULMONARY: There are diminished breath sounds on the right base with few crackles. There is mild expiratory wheezing noted more anteriorly. There are increased crackles noted at the left base. ABDOMEN: Soft, nontender. Mild tenderness to palpation in the right upper quadrant with no rebound. EXTREMITIES: There is trace pitting edema bilateral lower extremities. LABORATORY DATA: WBC 8.3, hemoglobin 11.0, platelets 141. Chemistry: Sodium 140, potassium 4.2, chloride 116, bicarbonate 14, BUN 19, creatinine 1.39, glucose 119, lactic acid 2.7, calcium 6.8, magnesium 1.3. BNP 2470. C-reactive protein (CRP) 24.5. Thyroid stimulating hormone (TSH) 9.2, Free T4 0. 86. Arterial blood gas (ABG) this morning: pH 7.328, pCO2 26.8, pO2 27.6. IMAGING DATA: Chest x-ray on admission showed right lower lobe opacity with left basilar atelectasis and mild pulmonary vascular congestion. CT of the chest showed emphysematous changes bilaterally. There is a left upper lobe nodule noted. There is also interstitial opacity in the right upper lobe abutting the major fissure. There is also a dense area of consolidation of the right middle lobe with some air bronchograms and a perihilar interstitial infiltrate in the right lower lobe medially. There is also a small area in the left lower lobe above the diaphragm medially with an interstitial infiltrate. CT abdomen and pelvis: There is hepatic steatosis noted. No gallstones. Colonic intermural fat deposition likely secondary to previous inflammation. No acute inflammation. Normal appendix. ASSESSMENT AND PLAN: Ms. Rey is a 60-year-old female with a past medical history of chronic obstructive pulmonary disease (COPD) and hypothyroidism who presented with complaints of shortness of breath and right-sided chest pain. Patient was found initially to have leukocytosis and findings on imaging concerning for community-acquired pneumonia. She was initially admitted to the floor and given broad spectrum antibiotics with ceftriaxone, azithromycin and vancomycin. Patient was also given intravenous (IV) fluid boluses with more than 30 mL/kg of IV fluid bolus. She did have episodes of borderline hypertension overnight and was given additional fluid boluses for a total of more than 6 liters positive. Patient was then noted to have increasing tachypnea and she was desaturating. She was placed on Vapotherm for oxygenation and critical care was consulted given her respiratory distress for concern for possible intubation as well as for her hypotension and for concern for septic shock. On assessment, patient appears to have some signs of fluid overload with increased crackles noted, particularly in the left side, as well as some mild lower extremity edema. A STAT chest x-ray was ordered, which did show some evidence of increased pulmonary vascular congestion and interstitial changes in the right lung in particular, as well as development of possible right pleural effusion. A bedside ultrasound showed minimal effusion on the right but very dense areas of consolidation in the right lower lobe. There did not appear to be enough fluid currently for drainage. 1. Acute hypoxemic respiratory failure secondary to community-acquired pneumonia and pulmonary edema. a. Patient's maintenance fluids were discontinued. Would hold off on diuretics given her sepsis and borderline blood pressures, but would closely monitor her respiratory status. Patient does have a Arias catheter in place and does appear to have increasing urine output. b. Will continue with Vapotherm for oxygen supplementation and will titrate down FiO2 to maintain saturations above 90%. c. Can continue with ceftriaxone, azithromycin and vancomycin for now pending methicillin-resistant Staphylococcus aureus (MRSA) screen. Would then de-escalate antibiotics depending on results. d. Will follow up results for mycoplasma, chlamydia, Streptococcus pneumoniae, Legionella antigen. e. Patient has dense consolidation in the right lower lobe and there is concern that she will have developing peripneumonic effusion and possibly empyema. Would closely monitor her fever curve and leukocytosis and would repeat a chest x-ray in the morning and consider repeat CT imaging at some point as well. f. Will start patient on incentive spirometer and will also start her on pain control with fentanyl as needed to help prevent splinting and worsening atelectasis and consolidation. g. Patient's lactic acid was elevated; repeat lactic acid pending. Will continue to monitor and trend. h. With her sepsis, if she does have worsening hypotension, she has already been adequately fluid resuscitated and there is concern for pulmonary edema and so would start her on Levophed for blood pressures if needed to maintain a mean arterial pressure (MAP) above 65. At that point, she would need a central line placed. i. Patient has an echocardiogram ordered. We will follow results. 2. History of chronic obstructive pulmonary disease (COPD) with ongoing nicotine dependence. a. Patient was started on prednisone 40 mg daily for acute exacerbation. Can continue with prednisone with a tapering course. b. Duo Nebs around the clock. 3. Acute kidney injury (KASSY). Likely secondary to dehydration. Improving with intravenous (IV) fluid hydration. a. Patient has a Arias catheter in place and will continue to monitor urine output and renal function. b. Would avoid nephrotoxic agents. 4. Metabolic acidosis. Likely secondary to lactic acidosis as well as a degree of hyperchloremic acidosis. Will continue to trend lactic acid, her bicarbonate and renal function. Patient's arterial blood gas (ABG) shows that she is compensating appropriately with her respiratory alkalosis and there is no indication for any bicarbonate administration at this time. 5. Deep venous thrombosis (DVT) prophylaxis. Heparin. 6. CODE STATUS: FULL CODE. TOTAL CRITICAL CARE TIME SPENT NOT INCLUDING PROCEDURES: Approximately 1 hour, 50 minutes. MTDD
[2021-01-31 13:48] LABS: VANCOMYCIN RANDOM 11.7 UG/ML
[2021-01-31] MEDS ORDERED: VANCOMYCIN HCL 1,000 MG, VIAL MATE ADAPTER 1 EACH in NS 250 ML IV ONE (15:00)
[2021-01-31] MEDS: VANCOMYCIN HCL 1,000 MG, VIAL MATE ADAPTER 1 EACH in NS 250 ML IV SCH (20:44)
[2021-01-31] MEDS: cefTRIAXone SOD 2 GM in D5W MINI-BAG PLUS 50 ML IV SCH (20:44)
[2021-01-31] MEDS ORDERED: AZITHROMYCIN INJ 500 MG, VIAL MATE ADAPTER 1 EACH in NS 250 ML IV SCH (22:00)
[2021-01-31] MEDS ORDERED: VANCOMYCIN HCL 1,000 MG, VIAL MATE ADAPTER 1 EACH in NS 250 ML IV SCH (23:00)
[2021-02-01] VITALS (25 sets, daily range): BP systolic 122–168; BP diastolic 58–77
[2021-02-01] MEDS: IPRATROPIUM 0.5MG/ALBUTEROL 2.5MG INH SOL UD 3ML (DUONEB) NEB SCH ×4 (02:11→19:45)
[2021-02-01] MEDS: ACETAMINOPHEN TAB 650MG DOSE (2X325MG) PO PRN (04:10)
[2021-02-01] MEDS: HEPARIN SOD (PORCINE) 5000UNITS/ML 1ML VIAL/SYRINGE SC SCH ×3 (06:03→21:11)
[2021-02-01] MEDS: LEVOTHYROXINE 100MCG TABLET (0.1MG) PO SCH (06:03)
[2021-02-01 08:06] LABS: HEMATOCRIT 31.8 % (36.0-47.0); HEMOGLOBIN 10.6 g/dl (12.0-15.5); MEAN CORPUSCULAR HEMOGLOBIN 31.3 pg (27.0-33.0); MEAN CORPUSCULAR HGB CONC 33.3 g/dl (32.0-36.5); MEAN CORPUSCULAR VOLUME 93.8 fl (80.0-96.0); PLATELET COUNT, AUTOMATED 175 10^3/uL (150-450); RED BLOOD COUNT 3.39 10^6/uL (4.00-5.40); WHITE BLOOD COUNT 17.7 10^3/uL (4.0-10.0)
[2021-02-01 08:35] LABS: BLOOD UREA NITROGEN 17 MG/DL (7-18); CALCIUM LEVEL 8.5 MG/DL (8.8-10.2); CARBON DIOXIDE LEVEL 20 MEQ/L (21-32); CHLORIDE LEVEL 117 MEQ/L (98-107); CREATININE FOR GFR 0.85 MG/DL (0.55-1.30); GLOMERULAR FILTRATION RATE > 60.0 (>45); GLUCOSE, FASTING 119 MG/DL (70-100); MAGNESIUM LEVEL 2.5 MG/DL (1.8-2.4); POTASSIUM SERUM 4.3 MEQ/L (3.5-5.1); SODIUM LEVEL 143 MEQ/L (136-145)
[2021-02-01] MEDS: NICOTINE 21MG/24HR 1 EA TRANSDERMAL TD SCH (08:45)
[2021-02-01] MEDS: VITAMIN D 1,000 INTERNATIONAL UNITS TABLET PO SCH (08:46)
[2021-02-01] MEDS: predniSONE 20 MG TAB PO SCH (08:46)
--- NOTE | 2021-02-01 08:57 | REP ---
INDICATION: hypoxia. COMPARISON: 01/31/2021. TECHNIQUE: Single portable AP view of the chest was performed. FINDINGS: Right base alveolar infiltrates have not significantly changed. Interstitial infiltrate is seen in the right upper lung, unchanged. There is mild interstitial infiltrate in the left lung base, stable. The heart and mediastinum are unchanged. IMPRESSION: Stable exam. <Electronically signed by Vidal Garland > 02/01/21 0853
[2021-02-01] MEDS: VANCOMYCIN HCL 1,000 MG, VIAL MATE ADAPTER 1 EACH in NS 250 ML IV SCH ×2 (10:03→22:07)
--- NOTE | 2021-02-01 11:37 | CCN ---
CRITICAL CARE NOTE DATE: 02/01/2021 SUBJECTIVE: The patient was seen and examined this morning during bedside rounds. Yesterday and throughout the day, the patient's blood pressure had remained with MAPs above 65 without any need of vasopressor supplementation or additional fluids. She did have improved urine output and her peripheral and crackles had improved. The patient also had improvement in her oxygen requirements and was able to be weaned down on Vapotherm. This morning, she was on 20 liters a minute, flow rates with 30% FiO2. She has remained afebrile overnight. This morning, she does notice improvement in her shortness of breath and dyspnea as well as in the chest pain that she was having previously on the right side. She has been using her incentive spirometer. OBJECTIVE: Vitals: Temperature is 97.9, pulse 107, respirations 18, blood pressure 129/61. O2 sat 95% on 20 liters a minute and 30% FiO2, in overnight 360 mL, out 1.2 liters, negative 890 mL. The patient is more than 6 liters positive from yesterday. General: The patient is lying in the bed, appears less tachypneic. She is not in any acute respiratory distress, is able to speak in complete sentences. She is awake, alert and oriented x3. HEENT: Normocephalic, atraumatic. Moist mucous membranes noted. Neck: Supple. Trachea is midline. Cardiac: Tachycardic, regular rate and rhythm. Normal S-1, S-2. Unable to clearly appreciate murmurs. Pulmonary: There are diminished breath sounds on the right base. No wheezing noted today. There is improvement in the crackles noted previously particularly at the left base. Abdomen: Soft, nontender, nondistended. No palpable masses. Extremities: There is improvement with no significant lower extremity edema noted now bilaterally. LABS: WBC 17.7, hemoglobin 10.6, platelets 175. Chemistries: Sodium is 143, potassium 4.3. Chloride is 117. Bicarb is 20, BUN 17, creatinine 0.85. Glucose is 119. IMAGING: Chest x-ray shows right-sided air space disease with more dense opacity in the right lower lobe as well as some increased interstitial markings particularly in the right upper lobe and to a lesser degree in the left. There is some left basilar atelectasis. There is trace blunting in the right CVA suggestive of minimal pleural effusion on the right. ASSESSMENT AND PLAN: Ms. Rey is a 60-year-old female with a past medical history of COPD and hypothyroidism who presented with shortness of breath and right-sided chest pain. The patient was found to have mostly right-sided air space disease on imaging, concerning for community acquired pneumonia. She was also noted to have leukocytosis and initially did have some episodes of hypotension. She did respond with fluids but was noted to have worsening tachypnea and desaturation. She was transferred to the ICU given some borderline blood pressure and with her increased oxygen requirements, being placed on Vapotherm. Clinically yesterday the patient appeared to have signs of fluid overload with increased crackles as well as some mild lower extremity edema. Her chest x-ray yesterday had shown some increased pulmonary vascular congestion and some initial interstitial changes particularly in the right lung. With discontinuation of IV fluids and increasing urine output, her crackles have improved today as well as her lower extremity edema. Her chest x-ray today does show some very slight improvement in aeration in the right lower lobe opacity and only very small trace pleural effusion. There are increased interstitial markings still particularly in the right upper lobe and to a lesser degree on the left side. There is left basilar atelectasis. 1. Acute hypoxemic respiratory failure secondary to community acquired pneumonia as well as a component of pulmonary edema. The patient's oxygen requirements have improved. She did have increasing urine output yesterday. Her blood pressures have also improved and she has not required any vasopressors. We will continue with Vapotherm but will continue to wean down her flow rates and FiO2 and we will attempt to transition her to high flow nasal cannula oxygen likely later this morning and continue to wean down as tolerated Continue with incentive spirometer and with pain control p.r.n. as needed to prevent splinting and atelectasis. Continue with broad-spectrum antibiotics with ceftriaxone and vancomycin. Would DC azithromycin. Her MRSA screen was negative but her blood cultures did grow gram positive cocci. Would follow the final speciation of her blood cultures before discontinuing the vancomycin. Repeat blood cultures are pending. Follow results of mycoplasma, Streptococcus pneumoniae and Legionella antigen. We will follow up results of echo. We will continue to monitor fever curve and leukocytosis. If she does have persistent leukocytosis or worsening, would consider repeat CT imaging at some point. 2. History of COPD with ongoing nicotine dependence. Continue with prednisone 40 mg daily for the next three days and then continue with tapering course of prednisone. Continue with DuoNebs. 3. KASSY. Likely prerenal, improved with IV fluids. We will continue to monitor urine output and renal function. Would attempt to keep patient slightly negative given some concern for some fluid overload initially with her aggressive fluid resuscitation. 4. Metabolic acidosis. Initially secondary to lactic acidosis as well as to a hyperchloremic acidosis. Her metabolic acidosis appears to be improving with her improvement in her renal function. Her hyperchloremia is also trending down slowly. Would avoid fluids with sodium chloride. She was compensating appropriately for her mild metabolic acidosis. DVT prophylaxis. Heparin. Code status: FULL CODE. Total critical care time spent not including any procedures approximately 35 minutes. Please do not hesitate to call if any further questions or concerns. MTDD
[2021-02-01] MEDS: fentaNYL 100 MCG/2 ML INJECTION (J3010) IV PRN (14:15)
[2021-02-01 16:08] LABS: MYCOPLASMA PNEUMONIAE IgG <100 U/mL (0-99); MYCOPLASMA PNEUMONIAE IgM <770 U/mL (0-769)
--- NOTE | 2021-02-01 17:40 | IPNPDOC ---
Text Note Date of Service The patient was seen on 02/01/21. NOTE Subjective: Patient seen and examined at bedside. No acute overnight events reported. Patient voices no new medical complaints today. She states she is feeling better. She is anxious to return home. Objective: General: NAD, lying comfortably in bed HEENT: NC/AT, EOMI Lungs: diminished breath sounds R>>L, basilar crackles Heart: +S1S2, RRR Abd: soft, NT, +BS Ext: improving peripheral edema Neuro: no gross focal deficits A/P: 60 year old female with PMHx of COPD and hypothyroidism who presented with 1 day history of shortness of breath and right sided chest pain, found to have sepsis secondary to multi-lobar pneumonia, with acute hypoxic respiratory failure. # Community acquired pneumonia - IV antibiotics with ceftriaxone and vancomycin. MRSA screen negative but pe nding BCx - urine for mycoplasma, chlamydia, strep pneumo, legionella Ags pending - sputum culture ordered. - incentive spirometry and acapella - BCx + x 2, repeat pending #acute hypoxic respiratory failure - much improved - supplemental oxygen - follow as per manager environmental health and safety - assistance appreciated # COPD with acute exacerbation - as above - continue oral prednisone 40 mg daily. - scheduled Duonebs with prn albuterol nebs - hold home scheduled Combivent while on scheduled Duonebs #bacteremia - pending final results and sensitivities - prelim G+ cocci pairs/chains - repeat cultures pending # Sepsis 2/2 CAP # Hypotension - 2/2 dehydration/sepsis - resolved - s/p iv fluids # KASSY - resolved - s/p IV fluid hydration - avoid nephrotoxic agents - belcher cath placed in ED # Hypothyroidism - continue home levothyroxine # Low back pain - hold home naproxen and other NSAIDs due to KASSY - Tylenol prn #nicotine dependence - current smoker - 40 pack year history - continue nicotine replacement therapy DVT Prophylaxis: sc heparin Dispo: patient much improved, transferring to PCU, pending BCx for final results to de-escalate abx, start PT/OT VS,Fishbone, I+O VS, Fishbone, I+O Laboratory Tests 02/01/21 07:49 Vital Signs Date Time Temp Pulse Resp B/P (MAP) Pulse Ox O2 Delivery O2 Flow Rate FiO2 02/01/21 08:00 20.0 30 02/01/21 08:00 98.4 106 22 148/68 (75) 92 HVNI-Vapotherm I&O- Last 24 Hours up to 6 AM 02/01/21 06:00 Intake Total 2035 ml Output Total 2475 ml Balance -440 ml MARTIN LABOY MD February 01, 2021 10:01
[2021-02-01] MEDS: cefTRIAXone SOD 2 GM in D5W MINI-BAG PLUS 50 ML IV SCH (21:11)
[2021-02-02] VITALS (7 sets, daily range): BP systolic 142–168; BP diastolic 61–100; O2SAT 91
[2021-02-02] MEDS: IPRATROPIUM 0.5MG/ALBUTEROL 2.5MG INH SOL UD 3ML (DUONEB) NEB SCH ×4 (01:14→21:43)
[2021-02-02 04:22] LABS: HEMATOCRIT 32.9 % (36.0-47.0); HEMOGLOBIN 11.1 g/dl (12.0-15.5); MEAN CORPUSCULAR HEMOGLOBIN 31.4 pg (27.0-33.0); MEAN CORPUSCULAR HGB CONC 33.7 g/dl (32.0-36.5); MEAN CORPUSCULAR VOLUME 93.2 fl (80.0-96.0); PLATELET COUNT, AUTOMATED 199 10^3/uL (150-450); RED BLOOD COUNT 3.53 10^6/uL (4.00-5.40); WHITE BLOOD COUNT 21.8 10^3/uL (4.0-10.0)
[2021-02-02] MEDS: ACETAMINOPHEN TAB 650MG DOSE (2X325MG) PO PRN (04:32)
[2021-02-02 04:55] LABS: BLOOD UREA NITROGEN 17 MG/DL (7-18); CALCIUM LEVEL 8.7 MG/DL (8.8-10.2); CARBON DIOXIDE LEVEL 24 MEQ/L (21-32); CHLORIDE LEVEL 113 MEQ/L (98-107); CREATININE FOR GFR 0.71 MG/DL (0.55-1.30); GLOMERULAR FILTRATION RATE > 60.0 (>45); GLUCOSE, FASTING 104 MG/DL (70-100); MAGNESIUM LEVEL 2.2 MG/DL (1.8-2.4); SODIUM LEVEL 143 MEQ/L (136-145)
[2021-02-02] MEDS: LEVOTHYROXINE 100MCG TABLET (0.1MG) PO SCH (06:17)
[2021-02-02] MEDS: HEPARIN SOD (PORCINE) 5000UNITS/ML 1ML VIAL/SYRINGE SC SCH ×3 (06:17→21:34)
[2021-02-02] MEDS: VANCOMYCIN HCL 1,000 MG, VIAL MATE ADAPTER 1 EACH in NS 250 ML IV SCH (08:07)
[2021-02-02] MEDS: NICOTINE 21MG/24HR 1 EA TRANSDERMAL TD SCH (08:07)
[2021-02-02] MEDS: predniSONE 20 MG TAB PO SCH (08:08)
[2021-02-02] MEDS: VITAMIN D 1,000 INTERNATIONAL UNITS TABLET PO SCH (08:08)
--- NOTE | 2021-02-02 08:35 | IPNPDOC ---
Text Note Date of Service The patient was seen on 02/02/21. NOTE Subjective: Patient seen and examined at bedside. No acute overnight events reported. Patient voices no new medical complaints today. Continues to feel better. Objective: General: NAD, lying comfortably in bed HEENT: NC/AT, EOMI Lungs: diminished breath sounds R>>L, basilar crackles, much improved from yesterday Heart: +S1S2, RRR Abd: soft, NT, +BS Ext: trace edema Neuro: no gross focal deficits A/P: 60 year old female with PMHx of COPD and hypothyroidism who presented with 1 day history of shortness of breath and right sided chest pain, found to have sepsis secondary to multi-lobar pneumonia, with acute hypoxic respiratory failure. # Community acquired pneumonia - IV antibiotics with ceftriaxone - urine for mycoplasma, chlamydia, strep pneumo, legionella Ags pending - sputum culture ordered. - incentive spirometry and acapella - BCx + x 2 for strep pneumo, repeat negative to date x2 #acute hypoxic respiratory failure - much improved - supplemental oxygen via nasal cannula # COPD with acute exacerbation - as above - continue oral prednisone 40 mg daily. - scheduled Duonebs with prn albuterol nebs - hold home scheduled Combivent while on scheduled Duonebs #bacteremia - strep pneumo - repeat cultures NTD x 2 # Sepsis 2/2 CAP - resolved # Hypotension - 2/2 dehydration/sepsis - resolved - s/p iv fluids # KASSY - resolved - s/p IV fluid hydration - avoid nephrotoxic agents - belcher cath placed in ED # Hypothyroidism - continue home levothyroxine # Low back pain - hold home naproxen and other NSAIDs due to KASSY - Tylenol prn #nicotine dependence - current smoker - 40 pack year history - continue nicotine replacement therapy DVT Prophylaxis: sc heparin Dispo: patient much improved, transferring to med surg, continue PT/OT, continue O2 wean, dc belcher VS,Cayla, I+O VS, [place], I+O Laboratory Tests 02/02/21 04:17 Vital Signs Date Time Temp Pulse Resp B/P (MAP) Pulse Ox O2 Delivery O2 Flow Rate FiO2 02/02/21 04:00 98.3 109 21 143/79 (100) 92 Nasal Cannula 1.0 02/01/21 10:26 30 I&O- Last 24 Hours up to 6 AM 02/02/21 06:00 Intake Total 1930 ml Output Total 3050 ml Balance -1120 ml MARTIN LABOY MD February 02, 2021 08:35
[2021-02-02] MEDS: cefTRIAXone SOD 2 GM in D5W MINI-BAG PLUS 50 ML IV SCH (21:33)
[2021-02-03] MEDS: IPRATROPIUM 0.5MG/ALBUTEROL 2.5MG INH SOL UD 3ML (DUONEB) NEB SCH ×4 (01:16→20:20)
[2021-02-03 02:47] LABS: CLOSTRIDIUM DIFFICILE PCR NEGATIVE (NEGATIVE)
[2021-02-03 05:44] VITALS: BP 157/81
[2021-02-03] MEDS: LEVOTHYROXINE 100MCG TABLET (0.1MG) PO SCH (05:46)
[2021-02-03] MEDS: HEPARIN SOD (PORCINE) 5000UNITS/ML 1ML VIAL/SYRINGE SC SCH ×3 (05:46→21:06)
[2021-02-03] MEDS ORDERED: LOPERAMIDE 2 MG CAPLET PO PRN (05:55)
[2021-02-03] MEDS ORDERED: LOPERAMIDE 2 MG CAPLET PO ONE (05:55)
[2021-02-03 07:04] LABS: HEMATOCRIT 36.6 % (36.0-47.0); HEMOGLOBIN 12.1 g/dl (12.0-15.5); MEAN CORPUSCULAR HEMOGLOBIN 30.6 pg (27.0-33.0); MEAN CORPUSCULAR HGB CONC 33.1 g/dl (32.0-36.5); MEAN CORPUSCULAR VOLUME 92.4 fl (80.0-96.0); PLATELET COUNT, AUTOMATED 227 10^3/uL (150-450); RED BLOOD COUNT 3.96 10^6/uL (4.00-5.40); WHITE BLOOD COUNT 23.1 10^3/uL (4.0-10.0)
[2021-02-03 07:29] LABS: BLOOD UREA NITROGEN 20 MG/DL (7-18); CALCIUM LEVEL 9.3 MG/DL (8.8-10.2); CARBON DIOXIDE LEVEL 26 MEQ/L (21-32); CHLORIDE LEVEL 109 MEQ/L (98-107); CREATININE FOR GFR 0.82 MG/DL (0.55-1.30); GLOMERULAR FILTRATION RATE > 60.0 (>45); GLUCOSE, FASTING 87 MG/DL (70-100); MAGNESIUM LEVEL 2.2 MG/DL (1.8-2.4); POTASSIUM SERUM 3.4 MEQ/L (3.5-5.1); SODIUM LEVEL 141 MEQ/L (136-145)
[2021-02-03] MEDS: NICOTINE 21MG/24HR 1 EA TRANSDERMAL TD SCH ×2 (09:00→09:23)
[2021-02-03] MEDS: predniSONE 20 MG TAB PO SCH (09:24)
[2021-02-03] MEDS: VITAMIN D 1,000 INTERNATIONAL UNITS TABLET PO SCH (09:24)
--- NOTE | 2021-02-03 09:55 | ECHO ---
DATE OF PROCEDURE: 01/31/2021 Age: 60 Gender: Female Height: 160 cm Weight: 83 kg REFERRING PHYSICIAN: Sandra Koch MD. INDICATION: Dyspnea. MEASUREMENTS: None. FINDINGS: This study is of very limited technical quality. There is underlying sinus rhythm with first-degree AV block. Parasternal views were virtually nonsexist and no useful information was obtained. There were very marginal apical views and some subcostal views. Left ventricle was very poorly seen, but based on limited views, I assume that there is probably normal or near normal LV systolic function. I certainly cannot report any definite assessment of ejection fraction. The left atrium appears grossly normal. Mitral valve also appears grossly normal and there is no significant mitral disease based on color Doppler imaging. The aortic valve was not well seen. No obvious stenosis or insufficiency is noted based on Doppler evaluation. Tricuspid and pulmonic valves were not visualized. Right-sided heart chambers were also not seen. No pericardial effusion is noted. Inferior vena cava measures 2 cm, which is in upper limits of normal size. The aortic root, aortic arch, and abdominal aorta were not well seen. CONCLUSIONS: 1. Very limited study with marginal visualization. 2. Grossly normal or near normal LV systolic function. Unable to report diastolic function. 3. No significant mitral disease. 4. Aortic valve was not well seen, but based on Doppler interrogation, there is no significant stenosis or insufficiency. 5. Right-sided chambers and valves were not visualized at all. 6. No pericardial effusion. 7. Inferior vena cava is in the upper limits of normal size. 8. Aortic arch and abdominal aorta were not visualized. [facility]
[2021-02-03] MEDS: ACETAMINOPHEN TAB 650MG DOSE (2X325MG) PO PRN (11:19)
[2021-02-03 14:00] VITALS: BP 161/85
--- NOTE | 2021-02-03 15:13 | IPNPDOC ---
Text Note Date of Service The patient was seen on 02/03/21. NOTE Subjective: Patient seen and examined at bedside. No acute overnight events reported. Patient voices no new medical complaints today. Anxious to go home. Objective: General: NAD, sitting comfortably at edge of bed HEENT: NC/AT, EOMI Lungs: scattered wheezes, improved aeration right lung Heart: +S1S2, RRR Abd: soft, NT, +BS Ext: trace edema Neuro: no gross focal deficits A/P: 60 year old female with PMHx of COPD and hypothyroidism who presented with 1 day history of shortness of breath and right sided chest pain, found to have sepsis secondary to multi-lobar pneumonia, with acute hypoxic respiratory failure. # Community acquired pneumonia - IV antibiotics with ceftriaxone - urine for mycoplasma, chlamydia, strep pneumo, legionella Ags pending - sputum culture ordered. - incentive spirometry and acapella - BCx + x 2 for strep pneumo, repeat negative to date x2 #acute hypoxic respiratory failure - much improved - supplemental oxygen via nasal cannula - continue to wean # COPD with acute exacerbation - as above - continue oral prednisone 40 mg daily. - scheduled Duonebs with prn albuterol nebs - hold home scheduled Combivent while on scheduled Duonebs #bacteremia - strep pneumo - repeat cultures NTD x 2 # Sepsis 2/2 CAP - resolved # Hypotension - 2/2 dehydration/sepsis - resolved - s/p iv fluids # KASSY - resolved - s/p IV fluid hydration - avoid nephrotoxic agents - belcher cath placed in ED # Hypothyroidism - continue home levothyroxine # Low back pain - hold home naproxen and other NSAIDs due to KASSY - Tylenol prn #nicotine dependence - current smoker - 40 pack year history - continue nicotine replacement therapy DVT Prophylaxis: sc heparin Dispo: continue IV abx, repeat procal trending down, continue to wean O2, anticipate d/c in 48-72 hours VS,Fishbone, I+O VS, Fishbone, I+O Laboratory Tests 02/03/21 06:27 Vital Signs Date Time Temp Pulse Resp B/P (MAP) Pulse Ox O2 Delivery O2 Flow Rate FiO2 02/03/21 14:00 98.1 105 19 161/85 (110) 90 Nasal Cannula 1.0 02/01/21 10:26 30 I&O- Last 24 Hours up to 6 AM 02/03/21 06:00 Intake Total 1200 ml Output Total 150 ml Balance 1050 ml MARTIN LABOY MD February 03, 2021 15:13
[2021-02-03 20:15] VITALS: BP 154/86
[2021-02-03] MEDS: cefTRIAXone SOD 2 GM in D5W MINI-BAG PLUS 50 ML IV SCH (20:26)
[2021-02-04] MEDS: IPRATROPIUM 0.5MG/ALBUTEROL 2.5MG INH SOL UD 3ML (DUONEB) NEB SCH ×2 (01:26→07:20)
[2021-02-04] MEDS: LEVOTHYROXINE 100MCG TABLET (0.1MG) PO SCH (05:35)
[2021-02-04] MEDS: HEPARIN SOD (PORCINE) 5000UNITS/ML 1ML VIAL/SYRINGE SC SCH ×2 (05:35→14:00)
[2021-02-04 05:36] VITALS: BP 144/72
[2021-02-04 06:25] LABS: HEMOGLOBIN 11.3 g/dl (12.0-15.5); MEAN CORPUSCULAR HEMOGLOBIN 30.7 pg (27.0-33.0); MEAN CORPUSCULAR HGB CONC 33.2 g/dl (32.0-36.5); MEAN CORPUSCULAR VOLUME 92.4 fl (80.0-96.0); PLATELET COUNT, AUTOMATED 210 10^3/uL (150-450); RED BLOOD COUNT 3.68 10^6/uL (4.00-5.40); WHITE BLOOD COUNT 14.6 10^3/uL (4.0-10.0)
[2021-02-04 06:49] LABS: BLOOD UREA NITROGEN 22 MG/DL (7-18); CALCIUM LEVEL 8.7 MG/DL (8.8-10.2); CARBON DIOXIDE LEVEL 26 MEQ/L (21-32); CHLORIDE LEVEL 109 MEQ/L (98-107); CREATININE FOR GFR 0.88 MG/DL (0.55-1.30); GLOMERULAR FILTRATION RATE > 60.0 (>45); GLUCOSE, FASTING 95 MG/DL (70-100); MAGNESIUM LEVEL 2.3 MG/DL (1.8-2.4); POTASSIUM SERUM 3.3 MEQ/L (3.5-5.1); SODIUM LEVEL 142 MEQ/L (136-145)
[2021-02-04] MEDS: ACETAMINOPHEN TAB 650MG DOSE (2X325MG) PO PRN (07:22)
[2021-02-04] MEDS: predniSONE 20 MG TAB PO SCH (07:22)
[2021-02-04] MEDS: VITAMIN D 1,000 INTERNATIONAL UNITS TABLET PO SCH (07:22)
[2021-02-04] MEDS: NICOTINE 21MG/24HR 1 EA TRANSDERMAL TD SCH ×2 (07:23→07:25)
[2021-02-04 07:30] VITALS: O2SAT 88
[2021-02-04] MEDS ORDERED: POTASSIUM CHLORIDE 10 MEQ SR TABLET PO ONE (11:00)
--- NOTE | 2021-02-04 11:16 | DS.PDOC ---
Discharge Summary General Date of Admission January 31, 2021 at 01:27 Date of Discharge 02/01/21 Discharge Summary PROCEDURES PERFORMED DURING STAY: [None]. ADMITTING/DISCHARGE DIAGNOSES: 1. Community acquired pneumonia 2. acute hypoxic respiratory failure 3. COPD with acute exacerbation 4. Sepsis 2/2 Community acquired pneumonia 5. Hypotension 2/2 sepsis 6. Acute kidney injury COMPLICATIONS/CHIEF COMPLAINT: Kassy,Copd W/Acute Exacerbation,Multilobar Lung Infi. HISTORY OF PRESENT ILLNESS: From admitting physicians H&P: Ally Rey is a 60 year old female who presented with 1 day history of shortness of breath and right sided chest pain. She states she woke up in the morning on 01/30 with pain in her left shoulder and along the right side of her chest extending down to near her abdomen. She states the pain was sharp and achy. She used a heating pad which helped the pain in the left shoulder. She felt this was a muscle strain from lifting things the day prior. She decided to rest in bed all day but noticed some shortness of breath, particularly difficulty taking a deep breath. She states this exacerbates her pain on the right side. She denies fevers or chills at home but reports sweats all day today. No change in weight. She states she has had a dry cough today as well which is new. No sputum production or hemoptysis. She feels she is wheezing when she breaths today as well. No sick contacts. HOSPITAL COURSE: 60 year old female with PMHx of COPD and hypothyroidism who presented with 1 day history of shortness of breath and right sided chest pain, found to have sepsis secondary to multi-lobar pneumonia, with acute hypoxic respiratory failure. # Community acquired pneumonia: IV antibiotics with ceftriaxone 4 days, followed by 5 days of levaquin at time of discharge. - BCx + x 2 for strep pneumo, repeats neg to date x2 #acute hypoxic respiratory failure - much improved - supplemental oxygen via nasal cannula down to 1L at time of discharge. # COPD with acute exacerbation: 5 days of prednisone 40mg. scheduled Duonebs with prn albuterol nebs. Doesnt appear to be in exacerbation at time of discharge. #bacteremia - strep pneumo - repeat cultures NTD x 2 # Sepsis 2/2 CAP - resolved # Hypotension - 2/2 dehydration/sepsis - resolved - s/p iv fluids # KASSY - resolved - s/p IV fluid hydration DISCHARGE MEDICATIONS: Please see below. ALLERGIES: Please see below. PHYSICAL EXAMINATION ON DISCHARGE: VITAL SIGNS: Please see below. Constitutional: Awake and alert, in no apparent distress ENT: Sclera are clear. Mucosa is moist. Respiratory: Lungs diminished breath sounds bilaterally. No appreciable wheezing. No respiratory distress. No use of accessory muscles. Saturating at 88-90% on monitor on 1 L of supplemental oxygen Cardiovascular: RRR S1 and S2 are normal, no murmur Gastrointestinal: Abdomen is soft, non distended, non tender, BS present. Musculoskeletal: No lower extremity edema Neurologic: No focal neurological deficit. Mental Status: A&O x3, normal affect Skin: No visible rashes LABORATORY DATA: Please see below. IMAGING: See chart PROGNOSIS: Fair ACTIVITY: [As tolerated]. DIET: COPD diet DISPOSITION: Home with home health DISCHARGE INSTRUCTIONS: Please follow up with your primary care physician within 1 week from discharge. If you do not have one, please follow up with us to schedule an appointment. Please keep all of your follow up appointments. Please call central to book your appointments with hospital specialists. Please take all your medications as prescribed. Please call/come to Clinic or go to the Emergency Department if - Temp >101, intractable Nausea/Vomiting, Diarrhea, Mouth sores, Headaches, Altered mental status, Seizures, sudden onset of swelling, bleeding, shortness of breath or chest pain. DISCHARGE CONDITION: [Stable]. TIME SPENT ON DISCHARGE: 40 minutes. Vital Signs/I&Os Vital Signs Date Time Temp Pulse Resp B/P (MAP) Pulse Ox O2 Delivery O2 Flow Rate FiO2 02/04/21 07:45 1.0 02/04/21 07:30 88 Room Air 02/04/21 05:36 98.1 97 20 144/72 (96) 02/01/21 10:26 30 I&O- Last 24 Hours up to 6 AM 02/04/21 06:00 Intake Total 240 ml Output Total 0 ml Balance 240 ml Laboratory Data Labs 24H Laboratory Tests 2 02/03/21 12:12: Procalcitonin 12.86 02/04/21 05:57: Nucleated Red Blood Cells % (auto) 0.1H, Anion Gap 7L, Glomerular Filtration Rate > 60.0, Calcium Level 8.7L, Magnesium Level 2.3 CBC/BMP Laboratory Tests 02/04/21 05:57 Microbiology Microbiology 02/01/21 Stool Occult Blood (MEME) - Final, Complete 01/31/21 Blood Culture - Preliminary, Resulted No Growth after 72 hours. All specime... 01/31/21 Blood Culture - Preliminary, Resulted No Growth after 72 hours. All specime... 01/30/21 Respiratory Virus Panel (PCR) (MEME) - Final, Complete 01/30/21 Blood Culture - Final, Complete Streptococcus Pneumoniae 01/30/21 Blood Culture - Final, Complete Streptococcus Pneumoniae Discharge Medications Scheduled Cholecalciferol (Vitamin D3) (Vitamin D3) 1,000 Unit Tablet, 1,000 UNITS PO DAILY, (Reported) Ipratropium/Albuterol Sulfate (Combivent Respimat 20-100 Mcg) 4 Gm Mist.inhal, 1 PUFF PO QID, (Reported) Levofloxacin (Levofloxacin) 750 Mg Tablet, 750 MG PO DAILY Levothyroxine Sodium (Euthyrox) 200 Mcg Tablet, 200 MCG PO DAILY, (Reported) Zinc (Zinc) 50 Mg Tablet, 50 MG PO DAILY, (Reported) Scheduled PRN Albuterol Sulf (Albuterol Sulfate) 2.5 Mg/3 Ml Vial.neb, 2.5 MG INH Q4H PRN for SHORTNESS OF BREATH, (Reported) Naproxen Sodium (Aleve) 220 Mg Tablet, 440 MG PO BID PRN for PAIN, (Reported) Allergies Coded Allergies: No Known Allergies (Unverified , 07/04/18) LILLY COLUNGA MD February 04, 2021 11:16
[2021-02-04] MEDS ORDERED: LEVO750T13 PO (11:19)
[2021-02-04 14:09] LABS: BODY FLUID CULTURE Not indicated. (.); CHLAMYDIA PNEUMONIAE IgG <1:16 (Neg:<1:16); CHLAMYDIA PNEUMONIAE IgM <1:10 (Neg:<1:10); LEGIONELLA ANTIGEN URINE Negative (Negative); ORGANISM ID Not indicated. (.); SPECIMEN SOURCE Urine (.); URINE STREP PNEUMONIAE ANTIGEN Negative (Negative)
== END 2021-02-04 17:44 | disposition home health service (06) | DRG 720 ==
LOC: M ED 21:52 → M ED INP 01-31 01:27 → ENRESERV 01-31 02:38 → M PCU 01-31 03:06 → M ICU 01-31 04:55 → M MS5PR 02-02 09:35
PROVIDERS: ADMIT Internal Medicine; ATTEND Family Medicine
DX: A40.3 Sepsis due to Streptococcus pneumoniae (principal); J96.01 Acute respiratory failure with hypoxia; R65.21 Severe sepsis with septic shock; N17.9 Acute kidney failure, unspecified; E87.2 Acidosis; J18.9 Pneumonia, unspecified organism; J44.1 Chronic obstructive pulmonary disease with (acute) exacerbation; J44.0 Chronic obstructive pulmonary disease with (acute) lower respiratory infection; E83.42 Hypomagnesemia; Z79.899 Other long term (current) drug therapy; E03.9 Hypothyroidism, unspecified; M54.5 Low back pain; D53.9 Nutritional anemia, unspecified; K57.30 Diverticulosis of large intestine without perforation or abscess without bleeding; F17.200 Nicotine dependence, unspecified, uncomplicated

== ENCOUNTER → 2021-04-15 | Outpatient (CLI) | payer OTHER ==
[~2021-04-15] MED LIST changes: +ALBU83IN INH; +ALBU83IN PO; +ALEV220T22 PO; +COMBAER6 PO; +D31000TA2 PO; +EUTH200T PO; +LEVO750T13 PO; +ZINC1TAB2 PO
--- NOTE | 2021-04-15 11:20 | REP ---
INDICATION: CHRONIC OBSTRUCTIVE PULMONARY DISEASE, UNSPECIFIED. COMPARISON: 02/01/2021 TECHNIQUE: PA and lateral FINDINGS: The superior mediastinal structures are midline. The cardiac silhouette is unremarkable in size, shape, and position. The diaphragmatic surfaces of the lungs are regular, and the costophrenic angles are clear. The pulmonary love are clear. Right upper lobe bullous emphysematous changes are again noted. The imaged osseous structures are intact. IMPRESSION: There is no acute cardiopulmonary disease. <Electronically signed by Romero Garcia > 04/15/21 1113
== END ==
LOC: M RAD 10:35
PROVIDERS: ATTEND Internal Medicine Pulmonary Disease
DX: J44.9 Chronic obstructive pulmonary disease, unspecified (principal)

== ENCOUNTER → 2022-02-09 | Outpatient (CLI) | payer OTHER ==
[~2022-02-09] MED LIST changes: -D31000TA2 PO; +VITA100093 PO
== END ==
LOC: M PLAIMG 13:51
PROVIDERS: ATTEND Internal Medicine Pulmonary Disease
DX: J43.9 Emphysema, unspecified (principal); R91.1 Solitary pulmonary nodule; K76.0 Fatty (change of) liver, not elsewhere classified

== ENCOUNTER → 2023-04-01 | Outpatient (CLI) | payer OTHER ==
[~2023-04-01] MED LIST changes: +ALBU2.5V10 INH; +ALBU2.5V10 PO; -ALBU83IN INH; -ALBU83IN PO; +LEVO1TAB40 PO; -LEVO750T13 PO
== END ==
LOC: M RAD 14:36
PROVIDERS: ATTEND Internal Medicine Pulmonary Disease
DX: Z87.891 Personal history of nicotine dependence (principal)

== ENCOUNTER → 2024-01-04 | Outpatient (CLI) | payer MEDICAID, MEDICARE, OTHER | LOC: M LAB 13:07 | PROVIDERS: ATTEND Nurse Practitioner Family | DX: E03.9 Hypothyroidism, unspecified (principal) ==

== ENCOUNTER → 2024-01-27 | Outpatient (REF) | payer OTHER | LOC: M LAB REF 16:52 | PROVIDERS: ATTEND Nurse Practitioner Family | DX: E03.9 Hypothyroidism, unspecified (principal) ==

== ENCOUNTER → 2024-03-30 | Outpatient (REF) | payer OTHER ==
[2024-03-30 19:26] LABS: BASO # 0.1 10^3/uL (0.0-0.2); BASO % 0.6 % (0.0-1.0); EOS # 0.2 10^3/uL (0.0-0.5); EOS % 1.2 % (0.0-3.0); HEMATOCRIT 43.9 % (36.0-47.0); HEMOGLOBIN 13.8 g/dl (12.0-15.5); LYMPH # 3.1 10^3/uL (1.5-5.0); LYMPH % 24.5 % (24.0-44.0); MEAN CORPUSCULAR HEMOGLOBIN 29.8 pg (27.0-33.0); MEAN CORPUSCULAR HGB CONC 31.4 g/dl (32.0-36.5); MEAN CORPUSCULAR VOLUME 94.8 fl (80.0-96.0); MONO # 0.7 10^3/uL (0.0-0.8); MONO % 5.6 % (2.0-8.0); NEUTROPHILS # 8.4 10^3/uL (1.5-8.5); NEUTROPHILS % 67.5 % (36.0-66.0); PLATELET COUNT, AUTOMATED 294 10^3/uL (150-450); RED BLOOD COUNT 4.63 10^6/uL (4.00-5.40); WHITE BLOOD COUNT 12.5 10^3/uL (4.0-10.0)
[2024-03-30 19:47] LABS: HEMOGLOBIN A1c 5.6 % (4.0-6.0)
[2024-03-30 20:09] LABS: ALBUMIN 3.4 G/DL (3.2-5.2); ALKALINE PHOSPHATASE 100 U/L (46-116); ALT/SGPT 22 U/L (7.0-40); AST/SGOT 12 U/L (<34); BILIRUBIN,TOTAL 0.3 MG/DL (0.3-1.2); BLOOD UREA NITROGEN 10 MG/DL (9-23); CALCIUM LEVEL 9.6 MG/DL (8.3-10.6); CARBON DIOXIDE LEVEL 27 MMOL/L (20-31); CHLORIDE LEVEL 109 MMOL/L (98-107); CHOLESTEROL LEVEL 283 MG/DL (<200); CHOLESTEROL RISK RATIO 8.89 (<5); CREATININE FOR GFR 0.94 MG/DL (0.55-1.30); GLOMERULAR FILTRATION RATE > 60.0 (>45); GLUCOSE, FASTING 91 MG/DL (74-106); HDL CHOLESTEROL 31.8 MG/DL (>40); LDL CHOLESTEROL 188.6 MG/DL (<100); NON-HDL-C 251.2 MG/DL; POTASSIUM SERUM 4.5 MMOL/L (3.5-5.1); SODIUM LEVEL 143 MMOL/L (136-145); TOTAL PROTEIN 6.4 G/DL (5.7-8.2); TRIGLYCERIDES LEVEL 313 MG/DL (<150)
[2024-03-30 20:10] LABS: THYROID STIMULATING HORMONE 16.937 uIU/ML (0.55-4.78)
[2024-03-30 20:11] LABS: TOTAL 25(OH) VITAMIN D 30.1 NG/ML (20.0-100.0)
== END ==
LOC: M LAB REF 16:23
PROVIDERS: ATTEND Nurse Practitioner Family
DX: E78.5 Hyperlipidemia, unspecified (principal); E03.9 Hypothyroidism, unspecified; E66.9 Obesity, unspecified; E55.9 Vitamin D deficiency, unspecified

== ENCOUNTER → 2024-04-01 | Outpatient (CLI) | payer OTHER | LOC: M SLEEP 20:00 | PROVIDERS: ATTEND Internal Medicine Pulmonary Disease | DX: G47.33 Obstructive sleep apnea (adult) (pediatric) (principal) ==

== ENCOUNTER → 2024-05-18 | Outpatient (CLI) | payer MEDICARE, OTHER | LOC: M RAD 12:28 | PROVIDERS: ATTEND Internal Medicine Pulmonary Disease | DX: Z12.2 Encounter for screening for malignant neoplasm of respiratory organs (principal); Z87.891 Personal history of nicotine dependence ==

== ENCOUNTER → 2024-06-29 | Outpatient (REF) | payer MEDICARE, OTHER ==
[2024-06-29 18:53] LABS: BASO # 0.1 10^3/uL (0.0-0.2); BASO % 0.5 % (0.0-1.0); EOS # 0.1 10^3/uL (0.0-0.5); HEMATOCRIT 42.9 % (36.0-47.0); HEMOGLOBIN 13.7 g/dl (12.0-15.5); LYMPH # 4.2 10^3/uL (1.5-5.0); LYMPH % 34.4 % (24.0-44.0); MEAN CORPUSCULAR HEMOGLOBIN 30.6 pg (27.0-33.0); MEAN CORPUSCULAR HGB CONC 31.9 g/dl (32.0-36.5); MEAN CORPUSCULAR VOLUME 95.8 fl (80.0-96.0); MONO # 0.8 10^3/uL (0.0-0.8); MONO % 6.2 % (2.0-8.0); NEUTROPHILS % 57.6 % (36.0-66.0); PLATELET COUNT, AUTOMATED 229 10^3/uL (150-450); RED BLOOD COUNT 4.48 10^6/uL (4.00-5.40); WHITE BLOOD COUNT 12.2 10^3/uL (4.0-10.0)
[2024-06-29 19:14] LABS: CALCIUM LEVEL 9.7 MG/DL (8.3-10.6); CHOLESTEROL RISK RATIO 6.3 (<5); CREATININE FOR GFR 1.32 MG/DL (0.55-1.30); HDL CHOLESTEROL 34.1 MG/DL (>40); LDL CHOLESTEROL 117.5 MG/DL (<100); NON-HDL-C 180.9 MG/DL; POTASSIUM SERUM 4.2 MMOL/L (3.5-5.1)
[2024-06-29 19:18] LABS: FREE T4 0.92 NG/DL (0.89-1.76)
[2024-06-29 19:19] LABS: THYROID STIMULATING HORMONE 54.165 uIU/ML (0.55-4.78)
[2024-06-29 19:41] LABS: HEMOGLOBIN A1c 5.7 % (4.0-6.0)
== END ==
LOC: M LAB REF 16:28
PROVIDERS: ATTEND Physician Assistant
DX: D64.9 Anemia, unspecified (principal); E78.5 Hyperlipidemia, unspecified; E03.9 Hypothyroidism, unspecified; E66.9 Obesity, unspecified

== ENCOUNTER → 2025-01-04 | Outpatient (REF) | payer MEDICARE, OTHER ==
[2025-01-04 19:13] LABS: THYROID STIMULATING HORMONE 19.07 uIU/ML (0.55-4.78)
[2025-01-04 19:14] LABS: CALCIUM LEVEL 9.6 MG/DL (8.3-10.6); CREATININE FOR GFR 1.04 MG/DL (0.55-1.30); FREE T4 0.92 NG/DL (0.89-1.76); GLOMERULAR FILTRATION RATE 59.7 (>45); POTASSIUM SERUM 4.5 MMOL/L (3.5-5.1)
== END ==
LOC: M LAB REF 17:26
PROVIDERS: ATTEND Physician Assistant
DX: E03.9 Hypothyroidism, unspecified (principal)

== ENCOUNTER → 2025-05-24 | Outpatient (CLI) | payer MEDICARE, OTHER | LOC: M RAD 16:24 | PROVIDERS: ATTEND Internal Medicine Pulmonary Disease | DX: Z12.2 Encounter for screening for malignant neoplasm of respiratory organs (principal); Z87.891 Personal history of nicotine dependence; J43.9 Emphysema, unspecified; R91.1 Solitary pulmonary nodule; I25.10 Atherosclerotic heart disease of native coronary artery without angina pectoris; I70.0 Atherosclerosis of aorta ==

== ENCOUNTER → 2025-08-08 | Outpatient (REF) | payer MEDICARE, OTHER, MEDICAID ==
[2025-08-08 16:30] LABS: BASO # 0.1 10^3/uL (0.0-0.2); BASO % 0.6 % (0.0-1.0); EOS # 0.1 10^3/uL (0.0-0.5); EOS % 1.2 % (0.0-3.0); LYMPH # 3.2 10^3/uL (1.5-5.0); LYMPH % 29.6 % (24.0-44.0); MONO # 0.6 10^3/uL (0.0-0.8); MONO % 5.4 % (2.0-8.0); NEUTROPHILS # 6.8 10^3/uL (1.5-8.5); NEUTROPHILS % 62.6 % (36.0-66.0); PLATELET COUNT, AUTOMATED 258 10^3/uL (150-450)
[2025-08-08 16:32] LABS: ALT/SGPT 26 U/L (7.0-40); AST/SGOT 23 U/L (<34); CALCIUM LEVEL 9.5 MG/DL (8.3-10.6); CARBON DIOXIDE LEVEL 31 MMOL/L (20-31); CHLORIDE LEVEL 107 MMOL/L (98-107); CHOLESTEROL LEVEL 309 MG/DL (<200); CHOLESTEROL RISK RATIO 8.98 (<5); CREATININE FOR GFR 1.21 MG/DL (0.55-1.30); GLOMERULAR FILTRATION RATE 49.4 (>45); LDL CHOLESTEROL 211.2 MG/DL (<100); MAGNESIUM LEVEL 2.1 MG/DL (1.8-2.4); NON-HDL-C 274.6 MG/DL; POTASSIUM SERUM 4.3 MMOL/L (3.5-5.1); SODIUM LEVEL 145 MMOL/L (136-145); TRIGLYCERIDES LEVEL 317 MG/DL (<150)
[2025-08-08 16:35] LABS: FREE T4 0.81 NG/DL (0.89-1.76)
[2025-08-08 16:37] LABS: THYROID PEROXIDASE ANTIBODY 61 U/ML (<60.0)
[2025-08-08 16:40] LABS: ESTIMATED AVERAGE GLUCOSE 128.0 MG/DL (60-110)
[2025-08-08 16:45] LABS: THYROGLOBULIN ANTIBODY < 15.0 U/ML (<60.0)
== END ==
LOC: M LAB REF 16:12
PROVIDERS: ATTEND Physician Assistant
DX: E03.9 Hypothyroidism, unspecified (principal); E66.9 Obesity, unspecified; J44.9 Chronic obstructive pulmonary disease, unspecified; Z79.899 Other long term (current) drug therapy